=== PATIENT | male | born 1985 | race Caucasian/White ===

== ENCOUNTER 2020-04-25 18:52 | Emergency (ER) | payer OTHER, SELFPAY ==
--- NOTE | 2020-04-25 18:53 | ED.GENADUL_ITS ---
Discharge Plan Disposition Patient Disposition: HOME Condition: Good Discharge Details Clinical Impression: Laceration of scalp Primary Care Provider: None,None ED Provider: Carmelita Gomez Home Meds and New Rx's Prescriptions: No Action No Known Home Meds RF: 0 Discharge Instructions Instructions: Laceration (ED), Staple Care (ED) Additional Instructions: Keep wound clean and dry. Monitor for side effect including redness, warmth, drainage, increased pain, fever/chills. If you develop these or other new/worsening symptoms to seek care urgently once again. Otherwise, please return in 1 week for staple removal. Tetanus was updated today. Medical Decision Making Patient is a pleasant 35-year-old male presenting today with chief complaint of laceration on his head. He reports that he was working a car for 5 hours ago and removing part from a shelf. Patient then fell on his head. Denies any loss of consciousness. Denies any persistent headaches. No visual change. No nausea vomiting. States that he was able to continue working. However, has some persistent bleeding prompting him to come in for evaluation. Unknown tetanus status On exam, patient has a 3 cm linear laceration of the top of his head. Galea is intact. He does have an abrasion on the left lateral side of the laceration. Patient is I discussed risk/benefits as well as expected procedural steps associated with closure. He voiced understanding and wishes to proceed. Patient has what is been over 5 years since his last tetanus, will update him today. Please see procedure note. Patient tolerated this well. Procedure preformed using standard, sterile technique. Wound explored to base in bloodless field, no FB or debris noted. Discusscare of wound and dwain. Return precautions discussed. He will return in one week for suture removal. All of his questions and concerns were addressed, he is brady greement with this plan. HPI General Mode of arrival: ambulatory . Date/Time Provider Initiated Documentation: 04/25/20 18:52 . Limitations to Documentation: no limitations . Information obtained by: patient and RN notes reviewed . History of Present Illness 35 year old M presents to the emergency department with the chief complaint of scalp laceration, described as mild, with intensity rated at 2. Quality is described as aching, and is localized to the head. Patient reports no radiation. Patient started experiencing this hour(s) (5) and it has been constant. No relieving factors improve symptom(s), No exacerbating factors reported . Patient notes no other symptoms.. Patient did receive the following treatments prior to arrival, none Related Data Home Medications Medication Instructions Recorded Confirmed Unknown [No Known Home Meds] 04/25/20 04/25/20 Allergies Allergy/AdvReac Type Severity Reaction Status Date / Time No Known Allergies Allergy Unverified 04/25/20 18:59 Review of Systems Constitutional Constitutional: Reports as per HPI, Denies chills, Denies fatigue, Denies fever(s) and Denies headache(s) Eyes Eyes: Denies change in vision and Denies loss of vision ENT Ears, Nose, Mouth, and Throat: Denies dizziness and Denies headache(s) Cardiovascular Cardiovascular: Denies syncope Gastrointestinal Gastrointestinal: Denies nausea and Denies vomiting Musculoskeletal Musculoskeletal: Reports as per HPI and Denies numbness Integumentary/Breasts Skin/Breast: Reports as per HPI Neurologic Neurologic: Reports as per HPI, Denies dizziness, Denies syncope, Denies headache(s), Denies loss of vision, Denies memory loss, Denies numbness, Denies other visual disturbances, Denies sensory deficit and Denies paresthesias Psychiatric Psychiatric: Denies memory loss Endocrine Endocrine: Denies fatigue [facility] Social History Smoking/Tobacco Use Status: Never Smoking risk assessment performed?: Yes Alcohol Intake: current Alcohol Intake frequency: a few times a month Drug use: Never Substance use type: does not use Do you feel safe at home: Yes Do you feel safe in your relationship?: Yes Exam Const General: cooperative, healthy appearing, comfortable, no acute distress and well developed Nutritional Appearance: average body habitus and well nourished Orientation: alert and awake [facility] Head: no palpable skull fracture, normocephalic, no Burr's sign, no hematomas, laceration, no palpable skull fracture, no raccoon eyes and scalp tenderness (over laceration) Head images: 1. 3cm laceration with abrasion on the left side. Into subQ tissue. No active bleeding. No FB or debris noted. Ears: hearing grossly normal bilaterally Face and sinus: normal facial exam Eyes General: appearance normal, both eyes and all related structures Resp Effort & Inspection: normal respiratory effort, able to speak in complete sentences and no respiratory distress Cardio Rate: regular rate Rhythm: regular rhythm Skin Trauma: laceration (as above) Neuro General: patient alert and patient awake Cognition: normal cognition Speech: speech normal Gait: normal gait Sensory Exam: no sensory deficits noted Psych Appearance: grossly normal and well kempt Mental Status: mental status grossly normal Speech and Movement: speech and movement normal Procedures Laceration Laceration 1: Site: scalp Size (cm): 3 Description: linear Depth: simple, single layer Local Anesthetic: Lidocaine 1% and with Epi Amount of anesthesia used (mL): 4 Pre-repair: wound explored, irrigated extensively and deep structures intact Skin layer closed with: other (dwain) Number of sutures: 2
[2020-04-25 18:56] VITALS: BP 144/100; PULSE 81; RESP 16; TEMP 36.7; O2SAT 100
[2020-04-25 19:32] VITALS: PULSE 81; RESP 16; TEMP 36.7; O2SAT 100
== END 2020-04-25 19:34 | disposition home or self-care (01) ==
PROVIDERS: Emergency Provider Physician Assistant
DX: S01.01XA Laceration without foreign body of scalp, initial encounter (principal); W20.8XXA Other cause of strike by thrown, projected or falling object, initial encounter
CPT/HCPCS: 12002; 90471

== ENCOUNTER 2020-05-02 19:43 | Emergency (ER) | payer OTHER, SELFPAY ==
[2020-05-02 19:46] VITALS: BP 147/87; PULSE 76; RESP 18; TEMP 36.8; O2SAT 99
--- NOTE | 2020-05-02 19:49 | W.ED.GENAD ---
Discharge Plan Disposition Patient Disposition: HOME Condition: Good Discharge Details Clinical Impression: Encounter for removal of sutures Primary Care Provider: None,None ED Provider: Carmelita Gomez Home Meds and New Rx's Prescriptions: No Action No Known Home Meds RF: 0 Discharge Instructions Instructions: Stitches Removal (ED) Additional Instructions: Your wound appears to be healing well. Please continue to monitor for infection including redness warmth, drainage, increased pain, fever/chills. I did you wash with. Otherwise, please follow-up with your primary care as needed. Medical Decision Making Patient is a pleasant 35 year old presenting today for staple removal. Wound appears to be healing well with no evidence of infection. #2 wdain removed by myself. I discussed continued wound care. All questions and concerns were addressed, he was in agreement with this plan. HPI General Mode of arrival: ambulatory. Date/Time Provider Initiated Documentation: 05/02/20 19:46. Limitations to Documentation: no limitations. Information obtained by: patient and RN notes reviewed. HPI Narrative: Patient presents today for staple removal. Was here one week ago at which time 2 dwain were placed. He denies pain, drainage, fever. Feels that he has been healing well. Related Data Home Medications Medication Instructions Recorded Confirmed Unknown [No Known Home Meds] 04/25/20 04/25/20 Allergies Allergy/AdvReac Type Severity Reaction Status Date / Time No Known Allergies Allergy Unverified 04/25/20 18:59 General Stated Complaint: SutureRem KEO: 5 Review of Systems Constitutional Constitutional: Reports as per HPI, Denies chills, Denies fever(s) and Denies weakness Musculoskeletal Musculoskeletal: Reports as per HPI and Denies tingling Integumentary/Breasts Skin/Breast: Reports as per HPI Neurologic Neurologic: Denies sensory deficit, Denies tingling and Denies weakness [facility] Social History Smoking/Tobacco Use Status: Never Smoking risk assessment performed?: Yes Alcohol Intake: current Alcohol Intake frequency: a few times a month Drug use: Never Substance use type: does not use Do you feel safe at home: Yes Do you feel safe in your relationship?: Yes Exam Const General: cooperative, healthy appearing, comfortable, no acute distress and well developed Nutritional Appearance: average body habitus and well nourished Orientation: alert and awake [facility] Head: normal to inspection (wound healing well with no evidence of infection) Resp Effort & Inspection: normal respiratory effort, able to speak in complete sentences and no respiratory distress Cardio Rate: regular rate Rhythm: regular rhythm Skin Trauma: laceration (top of scalp, healing well) Neuro General: patient alert and patient awake Cognition: normal cognition Speech: speech normal Gait: normal gait Motor: muscle tone normal throughout Psych Appearance: grossly normal and well kempt Mental Status: mental status grossly normal Speech and Movement: speech and movement normal Course Vital Signs Vital signs: Vital Signs Temperature 36.8 C 05/02/20 19:46 Pulse 76 05/02/20 19:46 Respiratory Rate 18 05/02/20 19:46 Blood Pressure 147/87 H 05/02/20 19:46 Pulse Oximetry 99 05/02/20 19:46 Temperature 36.8 C 05/02/20 19:46 Pulse 76 05/02/20 19:46 Respiratory Rate 18 05/02/20 19:46 Blood Pressure 147/87 H 05/02/20 19:46 Pulse Oximetry 99 05/02/20 19:46 Pain Level 0 05/02/20 19:46
== END 2020-05-02 19:55 | disposition home or self-care (01) ==
PROVIDERS: Emergency Provider Physician Assistant
DX: S01.01XD Laceration without foreign body of scalp, subsequent encounter (principal); W20.8XXD Other cause of strike by thrown, projected or falling object, subsequent encounter; Z48.02 Encounter for removal of sutures

== ENCOUNTER 2020-06-02 22:35 | Outpatient (REF) | payer OTHER, SELFPAY ==
[2020-06-06 22:17] LABS: COVID-19 RT-PCR Result NEGATIVE (Negative)
== END 2020-06-02 22:55 ==
LOC: NCHCN 22:35
PROVIDERS: PCP Family Medicine; Visit Provider Family Medicine
DX: Z20.828 Contact with and (suspected) exposure to other viral communicable diseases (principal)
CPT/HCPCS: U0003

== ENCOUNTER 2021-03-07 21:40 | Emergency (ER) | payer OTHER, SELFPAY ==
[2021-03-07 21:43] VITALS: BP 151/92; PULSE 76; RESP 18; TEMP 36.9; O2SAT 98
--- NOTE | 2021-03-07 21:48 | W.ED.GENAD ---
Discharge Plan Disposition Patient Disposition: HOME Condition: Stable Discharge Details Clinical Impression: Allergic dermatitis due to poison oak Primary Care Provider: Zahra Dueñas V ED Provider: Carmelita Gomez Home Meds and New Rx's Prescriptions: New prednisone 10 mg tablet 10 mg PO DAILY Qty: 31 RF: 0 Discharge Instructions Instructions: Prednisone (By mouth), Dermatitis (ED) Additional Instructions: Your exam is most consistent with contact dermatitis. Based on history, from poison oak. Please take steroids as prescribed. Pay attention to taper dosing. You were given first dose here, next dose will be tomorrow evening. Wrap legs when appropriate to prevent infection. Monitor for signs of infection including redness, warmth, increased pain, feverfs/chills. If you develop these or other new/worsening symptoms , please seek care urgently once again. Referrals: Zahra Dueñas MD [Primary Care Provider] - Discharge Data Discharge Date/Time-TO BE ENTERED AT DEPARTURE: 03/07/21 22:07 Medical Decision Making Patient is a pleasant 36-year-old male presenting today with chief complaint of rash to bilateral lower extremities. He reports that he began developing a rash 1 week ago after exposure to poison oak while golfing. He denies any fevers or chills. States the symptoms have been persistent and the right side has begun to swell more than it had in the past. He has not had a reaction like this historically. Has not had any shortness of breath. On exam, patient appears nontoxic. He does have well-defined rash to bilateral lower extremities which clearly spares.. Rash is pink and weeping with scattered small blisters. Consistent with poison oak exposure. Patient I discussed treatment options. As the rash has continued to progress, will start on steroids. We did discuss potential side effect associated with this. Patient is not a diabetic. He does not have a local primary care, I have asked care management team to assist with follow-up. Return precautions were discussed. All of his questions and concerns were addressed, he is in agreement with this plan. . HPI General Mode of arrival: ambulatory. Date/Time Provider Initiated Documentation: 03/07/21 21:46. Limitations to Documentation: no limitations. Information obtained by: patient and RN notes reviewed. History of Present Illness 36 year old M presents to the emergency department with the chief complaint of rash BLE , described as moderate, with intensity rated at 1 (denies any pain). Quality is described as constant, and is localized to the left and right. Patient reports no radiation. Patient started experiencing this week(s) (1) and it has been constant. No relieving factors improve symptom(s), No exacerbating factors reported . Patient notes no other symptoms.. Patient did receive the following treatments prior to arrival, none Related Data Home Medications Medication Instructions Recorded Confirmed prednisone 10 mg PO DAILY #31 tab 03/07/21 Previous Rx's Medication Instructions Recorded prednisone 10 mg PO DAILY #31 tab 03/07/21 Allergies Allergy/AdvReac Type Severity Reaction Status Date / Time No Known Allergies Allergy Unverified 04/25/20 18:59 General Stated Complaint: RashLesion KEO: 4 Review of Systems Constitutional Constitutional: Reports as per HPI, Denies chills and Denies fever(s) Cardiovascular Cardiovascular: Denies dyspnea Respiratory Respiratory: Denies cough and Denies dyspnea Musculoskeletal Musculoskeletal: Reports as per HPI Integumentary/Breasts Skin/Breast: Reports as per HPI Neurologic Neurologic: Reports as per HPI, Denies sensory deficit and Denies paresthesias [facility] Social History Smoking/Tobacco Use Status: Never Smoking risk assessment performed?: Yes Alcohol Intake: current Alcohol Intake frequency: a few times a month Drug use: Never Substance use type: does not use Do you feel safe at home: Yes Do you feel safe in your relationship?: Yes Exam Const General: cooperative, healthy appearing, comfortable, no acute distress and well developed Nutritional Appearance: average body habitus and well nourished Orientation: alert and awake Resp Effort & Inspection: normal respiratory effort, able to speak in complete sentences and no respiratory distress Cardio Rate: regular rate Rhythm: regular rhythm Neuro General: patient alert and patient awake Cognition: normal cognition Speech: speech normal Gait: normal gait Sensory Exam: no sensory deficits noted Extrem Ankle/foot/toe images: 1. Weeping rash with small blisters and skin swelling bilateral lower legs. Spares sock area. No pain. Not hot. No calf pain Psych Appearance: grossly normal and well kempt Mental Status: mental status grossly normal Speech and Movement: speech and movement normal Course Vital Signs Vital signs: Vital Signs Temperature 36.9 C 03/07/21 21:43 Pulse 76 03/07/21 21:43 Respiratory Rate 18 03/07/21 21:43 Blood Pressure 151/92 H 03/07/21 21:43 Pulse Oximetry 98 03/07/21 21:43 Temperature 36.9 C 03/07/21 21:43 Temperature Source Temporal Artery Scan 03/07/21 21:43 Pulse 76 03/07/21 21:43 Respiratory Rate 18 03/07/21 21:43 Respiratory Effort Non-Labored 03/07/21 21:44 Blood Pressure 151/92 H 03/07/21 21:43 Blood Pressure Position Sitting 03/07/21 21:43 Pulse Oximetry 98 03/07/21 21:43 Pain Level 0 03/07/21 21:43
[2021-03-07] MEDS: predniSONE 20 MG TAB 40 MG PO (22:01)
--- NOTE | 2021-03-07 22:30 | NUR.NOTE ---
Referral to Care Management to get patient re-established at [facility] in 2wks for significant dermatitis.Nursing Note:
== END 2021-03-07 22:07 | disposition home or self-care (01) ==
PROVIDERS: Emergency Provider Physician Assistant; PCP Family Medicine
DX: L23.7 Allergic contact dermatitis due to plants, except food (principal)
CPT/HCPCS: 99283; J7512